=== PATIENT | male | born 1955 | race Caucasian/White ===

== ENCOUNTER → 2017-12-30 | Outpatient (CLI) | payer OTHER ==
[~2017-12-30] MED LIST: BUPIVACAINE MPF 0.25% 10 ML VIAL. ONE; DEXAMETHASONE SOD PHOS 4 MG/ML VIAL ONE; IOHEXOL 300 MG/ML 50 ML VIAL. ONE; LIDOCAINE 1% PF 30 ML VIAL. ONE
== END | disposition home or self-care (01) ==
LOC: SURG 13:05
PROVIDERS: ATTEND Anesthesiology Pain Medicine
DX: M54.16 Radiculopathy, lumbar region (principal); Z96.652 Presence of left artificial knee joint
CPT/HCPCS: 64483; J1100; J2001; J3490; Q9967

== ENCOUNTER 2020-08-29 15:46 | Emergency (ER) | payer MEDICARE, OTHER ==
[~2020-08-29] VITALS: Ht 177.8 cm; Wt 108.5 kg
[2020-08-29 15:54] VITALS: BP 137/82
[2020-08-29] MEDS ORDERED: ASPIRIN 325 MG TABLET PO ONE (16:15)
--- NOTE | 2020-08-29 16:23 | EKG ---
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
[2020-08-29] MEDS ORDERED: IV NORMAL SALINE 1,000ML 1,000 ML IV ONE (16:30)
[2020-08-29 16:37] LABS: BASO % 1 % (0-3); EOS # 0.1 x10^3/uL (0.0-0.7); EOS % 2 % (0-3); HEMATOCRIT 41.6 % (39.0-53.0); HEMOGLOBIN 13.8 g/dL (13.0-17.5); LYMPH # 1.3 x10^3/uL (1.0-4.8); LYMPH % 23 % (24-48); MEAN CORPUSCULAR HEMOGLOBIN 32 pg (25-35); MEAN CORPUSCULAR HGB CONC 33 g/dL (31-37); MEAN CORPUSCULAR VOLUME 95 fL (79-100); MONO # 0.4 x10^3/uL (0.0-1.1); MONO % 7 % (0-9); NEUT # 3.9 x10^3uL (1.8-7.7); NEUT % 68 % (31-73); PLATELET COUNT 198 x10^3/uL (140-400); RED BLOOD COUNT 4.37 x10^6/uL (4.30-5.70); RED CELL DISTRIBUTION WIDTH 13.4 % (11.5-14.5); WHITE BLOOD COUNT 5.8 x10^3/uL (4.0-11.0)
--- NOTE | 2020-08-29 16:40 | PHYS DOC ---
Past History Past Medical History: CAD, High Cholesterol, Heart Disease, Hypertension Past Surgical History: Coronary Bypass Surgery, Knee Replacement Smoking: Chew, Quit Greater Than 1 Year Additional Smoking Information: Quit smoking 30 years ago. Currently Uses smokeless tobacco Alcohol Use: Occasionally Drug Use: None Social History Narrative: Son 2 weeks ago contributing to significant stress General Adult EDM: Chief Complaint: CHEST PAIN HPI: HPI: Patient is a 65 year old male who presents POV with chest pressure- onset 0800 this morning. 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 Today Mr. Crouch woke up "feeling off". He proceeded with his daily activities including yard work and exercise. At this time he noticed he was sweating more than normal and felt a 2/10 "gnawing feeling" on the left side/center of his chest that he usually feels when his blood pressure is elevated. He checked his BP and found it to be 166/102 with a pulse in the 90's. He took an extra metoprolol and 2x aspirin to help lower his blood pressure. His son 2 weeks ago leading to some added stress that he believes may be a contributing factor to the chest pressure he is feeling today. 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 Review of Systems: Review of Systems: Constitutional: Denies fever or chills. endorses an unsteady/dizzy feeling this morning that has since resolved. Eyes: vision changes or eye pain HENT: Denies nasal congestion or sore throat. endorses recent increase in tinnitus. Respiratory: Denies cough or shortness of breath Cardiovascular: Endorses chest pain. Denies palpitations GI: Denies abdominal pain, nausea, or vomiting. Endorses a 3 day history of loose stool : Denies dysuria or hematuria Musculoskeletal: Denies back pain or joint pain Integument: Denies rash or skin lesions Neurologic: Denies headache, focal weakness or sensory changes Complete systems were reviewed and found to be within normal limits, except as documented in this note. Family History: Family History: Brother :[place] at age 55 Current Medications: Current Meds: Current Medications Medications (Trade) Dose Ordered Sig/Margarita Start Time Stop Time Status Last Admin Dose Admin Aspirin (Samuel Aspirin) 325 mg 1X ONCE 08/29/20 16:15 08/29/20 16:16 DC Allergies: Allergies: Allergies Coded Allergies Type Severity Reaction Last Updated Verified cat dander Allergy Intermediate 08/29/20 Yes ragweed pollen Allergy Intermediate 08/29/20 Yes codeine Allergy Unknown Swelling 08/29/20 Yes Physical Exam: PE: Constitutional: Well developed, well nourished, no acute distress, non-toxic appearance HENT: Normocephalic, atraumatic Eyes: PERRL, EOMI, conjunctiva normal, no discharge Neck: Normal range of motion, no tenderness, supple Lungs & Thorax: No respiratory distress, equal chest rise and fall Abdomen: Soft, no tenderness Skin: Warm, dry, no erythema, no rash Back: No tenderness, no CVA tenderness Extremities: No tenderness, ROM intact, no edema Neurologic: Alert and oriented X 3, normal motor function, normal sensory function, no focal deficits noted Psychologic: Affect anxious and tearful, judgment normal Current Patient Data: Vital Signs: Vital Signs Date Time Temp Pulse Resp B/P (MAP) Pulse Ox O2 Delivery O2 Flow Rate FiO2 08/29/20 15:54 98.4 70 20 137/82 (100) 98 Room Air EKG: EKG: @1611 EKG normal sinus rhythm. No ST elevation or depression. Prolonged OH interval at 256 ms. QRS 82 ms. QT/QTC 390/411 ms Radiology/Procedures: Radiology/Procedures: PROCEDURE: CHEST AP ONLY Single view chest dated 08/29/2020. Comparison made to 07/06/2005. Clinical data indication: Chest pain. FINDINGS: Single upright portable exam performed. Heart and mediastinal contours are stable. Patient is status post median sternotomy. Lungs are somewhat hyperinflated but otherwise clear. No consolidation or pleural effusion. No pneumothorax. IMPRESSION: No acute radiographic abnormality. Electronically signed by: Rehan Hurt MD (08/29/2020 5:57 PM) [id number] Heart Score: HEART Score for Chest Pain: HEART Score for Chest Pain Response (Comments) Value History Slighlty/Non-Suspicious 0 ECG Normal 0 Age > 65 2 Risk Factors >3 Risk Factors or Hx CAD 2 Troponin < Normal Limit 0 Total 4 Risk Factors: Risk Factors: DM, Current or recent (<one month) smoker, HTN, HLP, family history of CAD, obesity. Risk Scores: Score 0 - 3: 2.5% MACE over next 6 weeks - Discharge Home Score 4 - 6: 20.3% MACE over next 6 weeks - Admit for Clinical Observation Score 7 - 10: 72.7% MACE over next 6 weeks - Early Invasive Strategies Course & Med Decision Making: Course & Med Decision Making Pertinent Labs and Imaging studies reviewed. (See chart for details) This 65 yo male presented POV to the ED with chest pressure and "feeling off" since 0800 hrs this morning. He has a PMH significant for HTN, HLD, and s/p CABG 11/2019. He took 2x ASA and a dose of metoprolol prior to coming to the ED. EKG showed normal sinus rhythm, prolonged OH interval, no ST elevations or d epressions. Serial troponins negative x 2. CBC, CMP, D-dimer unremarkable. Chest xray unremarkable for acute cardiopulmonary pathology. Shared decision making utilized, patient feels his symptoms are stress related. Given risk factors, patient offered admission for further evaluation. Patient elects to be discharged homed. Patient stable for discharge with outpatient follow-up with PCP/cardiology. Discussed findings and plan with patient, who acknowledges understanding and agreement. Trungon Disclaimer: Drag[place]elia Disclaimer: This electronic medical record was generated, in whole or in part, using a voice recognition dictation system. Departure Departure: Impression: Primary Impression: Chest pain Qualified Codes: R07.9 - Chest pain, unspecified Disposition: 01 DC HOME SELF CARE/HOMELESS Condition: STABLE Referrals: LAWRENCE CREWS MD (PCP) RAMA ANG MD Patient Instructions: Anxiety and Panic Attacks, [id number], Chest Pain (Nonspecific), [id number] Scripts Lorazepam (ATIVAN ) 0.5 Mg Tablet 0.5 MG PO PRN TID PRN for ANXIETY, #10 TAB Prov: REHAN GUAJARDO DO 08/29/20 REHAN GUAJARDO DO Aug 29, 2020 16:40
[2020-08-29 16:55] LABS: ANION GAP 9 (6-14); BLOOD UREA NITROGEN 20 mg/dL (8-26); BUN/CREATININE RATIO 15 (6-20); CHLORIDE 104 mmol/L (98-107); CREATININE 1.3 mg/dL (0.7-1.3); GFR 55.2; GLUCOSE 112 mg/dL (70-99); POTASSIUM 3.8 mmol/L (3.5-5.1); SODIUM 137 mmol/L (136-145)
[2020-08-29 17:03] LABS: ALBUMIN 3.9 g/dL (3.4-5.0); ALBUMIN/GLOBULIN RATIO 1.2 (1.0-1.7); ALK PHOS 45 U/L (46-116); ALT (SGPT) 53 U/L (16-63); AST (SGOT) 27 U/L (15-37); LIPASE 105 U/L (73-393); TOTAL BILIRUBIN 0.4 mg/dL (0.2-1.0); TOTAL PROTEIN 7.1 g/dL (6.4-8.2)
--- NOTE | 2020-08-29 17:59 | RAD ---
Single view chest dated 08/29/2020. Comparison made to 07/06/2005. Clinical data indication: Chest pain. FINDINGS: Single upright portable exam performed. Heart and mediastinal contours are stable. Patient is status post median sternotomy. Lungs are somewhat hyperinflated but otherwise clear. No consolidation or ple ural effusion. No pneumothorax. IMPRESSION: No acute radiographic abnormality. Electronically signed by: Rehan Hurt MD (08/29/2020 5:57 PM) [id number]
[2020-08-29] MEDS ORDERED: LORA0.5T21 PO (18:47)
== END 2020-08-29 19:50 | disposition home or self-care (01) ==
LOC: ER 15:46
DX: R07.89 Other chest pain (principal); R19.7 Diarrhea, unspecified; R42 Dizziness and giddiness; I25.810 Atherosclerosis of coronary artery bypass graft(s) without angina pectoris; I11.9 Hypertensive heart disease without heart failure; E78.00 Pure hypercholesterolemia, unspecified; Z87.891 Personal history of nicotine dependence; Z88.5 Allergy status to narcotic agent; Z91.018 Allergy to other foods; Z88.8 Allergy status to other drugs, medicaments and biological substances
CPT/HCPCS: 36415; 71045; 80053; 82553; 83690; 83735; 83880; 84484; 85025; 85379; 85610; 85730; 93005; 96360; 96361; 99284; J7030